=== PATIENT | male | born 1975 | race Caucasian/White ===

== ENCOUNTER 2024-02-16 18:44 | Emergency (ER) | payer OTHER ==
[2024-02-16 19:12] VITALS: BP 120/80; PULSE 72; RESP 18; TEMP 98.2; BMI 29.2
== END 2024-02-16 20:17 | disposition home or self-care (01) ==
LOC: FER 18:44
DX: S80.02XA Contusion of left knee, initial encounter (principal); W28.XXXA Contact with powered lawn mower, initial encounter; Y99.0 Civilian activity done for income or pay
CPT/HCPCS: 73562-TC-LT-FY; 99283-25